=== PATIENT | male | born 1985 | race Caucasian/White ===

== ENCOUNTER 2023-01-05 10:53 | Emergency (ER) | payer SELFPAY ==
[~2023-01-05] VITALS: Ht 177.8 cm; Wt 102.1 kg
[2023-01-05 10:53] VITALS: BP 140/95
--- NOTE | 2023-01-05 10:57 | ER.PDOC ---
General Chief Complaint: Requesting Medical Care Stated Complaint: MALE Time seen by MD: 10:56 Source: patient Exam Limitations: no limitations History of Present Illness Initial Comments informed yesterday of STD exposure. Essentially no symptoms He is requesting testing. He is and this was a one time extra-marital exposure. I explained that HIV and syphylis yesting is performed 6 weks post exposure. Testing early for GC and chlamydia asymtomatically would not be reliable. He said that he migh have some early burning.. Will give rocephin 500mg IM and then d/c with doxy Timing/Duration: yesterday Sexual History: Known STD exposure Prior symptoms/Treatment: Similar symptoms previous Allergies: Coded Allergies: No Known Allergies (Unverified , 01/24/17) Past Medical History Medical History: other (urethritis) Family History Significant Family History: no pertinent family hx Social History Smoking: non-smoker Reviewed Nursing Reviewed: Vital Signs, Abn. Noted, Nursing Assessment Review of Systems Constitutional: no symptoms reported EENTM: no symptoms reported Respiratory: no symptoms reported Cardiovascular: no symptoms reported Gastrointestinal: no symptoms reported Genitourinary: see HPI, burning Musculoskeletal: no symptoms reported Skin: no symptoms reported Psychiatric/Neurological: no symptoms reported Endocrine: no symptoms reported Hematologic/Lymphatic: no symptoms reported All Other Systems: Reviewed and Negative Physical Exam General Appearance: No Apparent Distress, WD/WN, Anxious EENT: eyes nml inspection Cardiovascular/Respiratory: Regular Rate, Rhythm, No M/R/G Abdomen: Non Tender, Soft Male Genitals: Normal Genitalia, Other (no d/c normal testis and epididymis) Extremities: Normal Range of Motion 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
[2023-01-05] MEDS ORDERED: ROCEPHIN IM STA (11:10)
== END 2023-01-05 11:29 | disposition home or self-care (01) ==
LOC: ER 10:53
DX: N34.2 Other urethritis (principal); Z20.2 Contact with and (suspected) exposure to infections with a predominantly sexual mode of transmission
CPT/HCPCS: 96372; 99283